=== PATIENT | female | born 1990 | race Caucasian/White ===

== ENCOUNTER → 2016-10-01 | Outpatient (CLI) | payer BC ==
[~2016-10-01] VITALS: Ht 160 cm; Wt 59.0 kg
[~2016-10-01] MED LIST: CHILDREN'S100 MG/51 PO; Lortab,Vicodin Elixir PO; PRENATAL TABLE1 EAC3 PO; PRENATAL VITAM1 EAC1 PO
[2016-10-01 11:30] VITALS: BP 115/70
== END | disposition home or self-care (01) ==
LOC: IVINF 11:20
DX: Z31.82 Encounter for Rh incompatibility status (principal)
CPT/HCPCS: 96372; J2790

== ENCOUNTER 2016-12-15 16:30 | Inpatient (IN) | payer BC ==
[2016-12-15] VITALS (15 sets, daily range): BP systolic 133–166; BP diastolic 70–107
[~2016-12-15] VITALS: Ht 162.6 cm; Wt 62.6 kg
[2016-12-15 17:50] LABS: EOSINOPHIL (%) 0.4 % (0-5); HEMATOCRIT 32.8 % (36.0-46.0); IMMATURE GRANULOCYTE (%) 0.5 % (0.0-0.7); IMMATURE GRANULOCYTE COUNT 0.1 K/uL; INSTRUMENT ABS NEUTROPHIL CT 7.1 K/uL; LYMPHOCYTE COUNT 2.6 K/uL (1.0-2.8); MCHC 34.5 G/DL (30.0-36.0); MEAN PLAT.VOLUME 11.1 uM^3 (9.5-12.4); MONOCYTE COUNT 0.6 K/uL (0-0.8); NEUTROPHIL (%) 67.8 % (45-76); NEUTROPHIL COUNT 7.1 K/uL (1.8-6.4); PLATELET COUNT 227 K/uL (156-360); RBC DIS.WIDTH-CV 11.9 % (11.8-14.6); RBC DIS.WIDTH-SD 37.8 % (39-53); RED BLOOD COUNT 3.77 M/uL (3.80-5.20); WHITE BLOOD COUNT 10.4 K/uL (4.1-10.2)
[2016-12-15 19:43] LABS: ANION GAP 12 MEQ/L (2-14); CHLORIDE 103 MEQ/L (99-109); POTASSIUM 3.5 MEQ/L (3.7-5.4); SAMPLE HEMOLYSIS CHECK 0; SAMPLE ICTERIC CHECK 0; SAMPLE LIPEMIA CHECK 0; SODIUM 134 MEQ/L (136-147); TOTAL BILIRUBIN 0.3 MG/DL (0.0-1.0)
[2016-12-15 19:48] LABS: ALKALINE PHOSPHATASE 141 IU/L (3-129); GFR ESTIMATE (CALCULATED) > 59 mL/min/; GLUCOSE 77 mg/dL (70-99); UREA NITROGEN (BUN) 7 mg/dL (9-23)
[2016-12-15] MEDS ORDERED: MOTRIN800 MG PO (22:24)
[2016-12-16 00:03] VITALS: BP 121/76
[2016-12-16 01:23] VITALS: BP 126/76
[2016-12-16 07:55] VITALS: BP 117/82
[2016-12-16 15:46] VITALS: BP 132/94
[2016-12-16 22:55] VITALS: BP 136/83
[2016-12-17 07:34] VITALS: BP 122/80
[2016-12-17 14:27] VITALS: BP 128/93
== END 2016-12-17 17:40 | disposition home or self-care (01) | DRG 775 ==
LOC: LDRP-OP 16:30 → 2WEST 16:32
PROVIDERS: Nurse Practitioner; Obstetrics & Gynecology
DX: O99.824 Streptococcus B carrier state complicating childbirth (principal); O99.344 Other mental disorders complicating childbirth; F32.9 Major depressive disorder, single episode, unspecified; O99.340 Other mental disorders complicating pregnancy, unspecified trimester; F41.9 Anxiety disorder, unspecified; O22.40 Hemorrhoids in pregnancy, unspecified trimester; Z37.0 Single live birth; Z3A.38 38 weeks gestation of pregnancy
CPT/HCPCS: 80053; 82570; 83030; 84156; 85025; 86870; 86900; 86901; C1755; J2790; J3010; J7120